=== PATIENT | male | born 1955 | race African-American/Black ===

== ENCOUNTER 2016-11-23 12:18 | Emergency (ER) | payer MEDICARE ==
[~2016-11-23 12:18] MED LIST: ANTIVERT25 MG PO; CENTRUM1 TAB; CENTRUM1 TAB PO; DURAGESIC12.5 MCG/H TD; DYAZIDE 25 MG-51 CAP PO; FLEXERIL10 MG PO; HYDROCODONE BIT1 T11 PO; LISINOPRIL/HCTZ1 TA2 PO; LOMOTIL 0.025 M1 TAB PO; MEDROL DOSEPAK4 MG PO; NORVASC5 MG PO; PARAFON FORTE500 MG PO; PERCOCET 325 MG1 TA7 PO; PREDNICOT10 MG PO; PREDNICOT20 MG PO; STERAPRED DS10 MG PO; VICODIN 5/500 505 MG PO; VITAMIN B12100 MCG PO; VITAMIN D1000 IU PO; VITAMIN D5000 I3 PO; VITAMIN D5000 IU PO; XANAX0.25 MG PO
[2016-11-23] MEDS ORDERED: MEDROL DOSEPAK4 MG PO ×2 (13:43→14:14)
[2016-11-23] MEDS ORDERED: CYCLOBENZAPRINE10 MG PO ×2 (13:43→14:14)
[2016-11-23] MEDS ORDERED: NAPROSYN500 MG PO ×2 (13:43→14:14)
== END 2016-11-23 13:51 | disposition home or self-care (01) ==
LOC: ED 12:18
DX: S39.012A Strain of muscle, fascia and tendon of lower back, initial encounter (principal); Z79.899 Other long term (current) drug therapy; W18.39XA Other fall on same level, initial encounter; Y93.89 Activity, other specified; Y92.009 Unspecified place in unspecified non-institutional (private) residence as the place of occurrence of the external cause; Y99.9 Unspecified external cause status

== ENCOUNTER → 2017-02-12 | Outpatient (CLI) | payer MEDICARE ==
[~2017-02-12] MED LIST changes: +CYCLOBENZAPRINE10 MG PO; +NAPROSYN500 MG PO
== END | disposition home or self-care (01) ==
LOC: LAB 11:17
DX: R05 Cough (principal)

== ENCOUNTER 2017-06-21 10:08 | Emergency (ER) | payer MEDICARE ==
[~2017-06-21] VITALS: Ht 175.2 cm; Wt 73.9 kg
[2017-06-21] MEDS ORDERED: KEFLEX500 M1 PO (10:29)
== END 2017-06-21 10:53 | disposition home or self-care (01) ==
LOC: ED 10:08
DX: S51.811D Laceration without foreign body of right forearm, subsequent encounter (principal); X58.XXXD Exposure to other specified factors, subsequent encounter; Y92.9 Unspecified place or not applicable; Y99.9 Unspecified external cause status; Z79.899 Other long term (current) drug therapy

== ENCOUNTER 2017-09-08 10:38 | Emergency (ER) | payer MEDICARE ==
[~2017-09-08] VITALS: Ht 175.2 cm; Wt 74.8 kg
[~2017-09-08 10:38] MED LIST changes: +KEFLEX500 M1 PO
[2017-09-08 12:24] LABS: BASO % 0.5 % (0.0-1.0); EOS # 0.1 10*3/uL (0.0-0.4); EOS % 0.9 % (1.0-4.0); HEMATOCRIT 44.2 % (42.0-52.0); HEMOGLOBIN 15.1 g/dl (14.0-18.0); LYMPH # 2.7 10*3/uL (1.3-4.4); MEAN CELL VOLUME 83.4 fl (80.0-94.0); MEAN CORPUSCULAR HGB 28.5 pg (27.0-31.0); MEAN CORPUSCULAR HGB CONC 34.2 g/dl (33.0-37.0); MEAN PLATELET VOLUME 8.2 fl (9.6-12.3); MONO # 0.8 10*3/uL (0.1-1.0); MONO % 8.5 % (3.0-9.0); NEUT # 5.2 10*3/uL (2.3-7.9); NEUT % 58.5 % (47.0-73.0); PLATELET COUNT AUTOMATED 210 10*3/uL (130-400); RED CELL DISTRI WIDTH 12.5 % (0-14.5); WHITE BLOOD COUNT 8.8 10*3/uL (4.8-10.8)
[2017-09-08 12:33] LABS: ACT PARTIAL THROMBO TIME 22.1 SECONDS (20.8-31.5)
[2017-09-08 12:38] LABS: BUN 7 mg/dl (7-24); CHLORIDE 107 mmol/L (98-107); CREATININE 1.12 mg/dL (0.70-1.30); POTASSIUM 3.2 mmol/L (3.5-5.1); SODIUM 141 mmol/L (136-145)
[2017-09-08] MEDS ORDERED: DECADRON4 MG PO (12:59)
[2017-09-08] MEDS ORDERED: DEXAMETHASONE4 MG PO (15:02)
== END 2017-09-08 21:16 | disposition left against medical advice (07) ==
LOC: ED 10:38
PROVIDERS: Emergency Medicine
DX: M48.02 Spinal stenosis, cervical region (principal); M62.81 Muscle weakness (generalized); Z90.89 Acquired absence of other organs; Z79.899 Other long term (current) drug therapy

== ENCOUNTER 2018-03-28 23:47 | Emergency (ER) | payer MEDICARE ==
[~2018-03-28] VITALS: Ht 180.3 cm; Wt 81.6 kg
[~2018-03-28 23:47] MED LIST changes: +DECADRON4 MG PO; +DEXAMETHASONE4 MG PO
[2018-03-29 00:04] LABS: BASO % 0.8 % (0.0-1.0); EOS # 0.1 10*3/uL (0.0-0.4); EOS % 2.5 % (1.0-4.0); HEMATOCRIT 42.5 % (42.0-52.0); HEMOGLOBIN 14.4 g/dl (14.0-18.0); LYMPH # 1.3 10*3/uL (1.3-4.4); MEAN CELL VOLUME 84.5 fl (80.0-94.0); MEAN CORPUSCULAR HGB 28.6 pg (27.0-31.0); MEAN CORPUSCULAR HGB CONC 33.9 g/dl (33.0-37.0); MONO # 0.5 10*3/uL (0.1-1.0); MONO % 9.2 % (3.0-9.0); NEUT # 3.3 10*3/uL (2.3-7.9); NEUT % 62.3 % (47.0-73.0); PLATELET COUNT AUTOMATED 168 10*3/uL (130-400); RED BLOOD COUNT 5.03 10*6/uL (4.50-5.90); RED CELL DISTRI WIDTH 14.8 % (0-14.5); WHITE BLOOD COUNT 5.2 10*3/uL (4.8-10.8)
[2018-03-29 00:21] LABS: ALBUMIN 3.8 gm/dl (3.1-4.5); ALKALINE PHOSPHATASE 71 U/L (45-117); BUN 8 mg/dl (7-24); CHLORIDE 107 mmol/L (98-107); CREATININE 1.02 mg/dL (0.70-1.30); POTASSIUM 2.9 mmol/L (3.5-5.1); SGOT/AST 40 IU/L (3-35); SGPT/ALT 35 U/L (12-78); SODIUM 143 mmol/L (136-145); TOTAL PROTEIN 6.3 gm/dL (6.4-8.2)
[2018-03-29 00:28] LABS: ACETAMINOPHEN (TYLENOL) < 2.0 ug/ml (10-30); TROPONIN I < 0.015 ng/ml (<0.045)
[2018-03-29 00:53] LABS: BILIRUBIN NEGATIVE (NEGATIVE); BLOOD NEGATIVE (NEGATIVE); CLARITY CLEAR (CLEAR); COLOR YELLOW (YELLOW); GLUCOSE TRACE (NEGATIVE); KETONE TRACE (NEGATIVE); LEUKO ESTERASE TRACE (NEGATIVE); NITRITE NEGATIVE (NEGATIVE); SPECIFIC GRAVITY 1.025 (1.005-1.030); UROBILINOGEN 0.2 E.U./dl (0.2-1.0)
[2018-03-29 01:03] LABS: URINE AMPHETAMINES < 1000 (1000ng/ml); URINE BARBITURATES < 200 (200ng/ml); URINE BENZODIAZEPINES < 200 (200ng/ml); URINE CANNABINOIDS (THC) > 50 (50ng/ml); URINE COCAINE > 300 (300ng/ml); URINE OPIATES > 300 (300ng/ml)
[2018-03-29 01:08] LABS: URINE METHADONE < 300 (300ng/ml); URINE PHENCYCLIDINE < 25 (25ng/ml)
[2018-03-29] MEDS ORDERED: K-TAB20 MEQ PO (01:17)
[2018-03-29] MEDS ORDERED: Orphenadrine C100 MG PO (01:17)
[2018-03-29] MEDS ORDERED: KETOROLAC10 MG PO (01:17)
== END 2018-03-29 01:21 | disposition home or self-care (01) ==
LOC: ED 23:47
PROVIDERS: Physician Assistant
DX: F14.10 Cocaine abuse, uncomplicated (principal); E87.6 Hypokalemia; Z79.899 Other long term (current) drug therapy

== ENCOUNTER 2018-09-19 12:41 | Emergency (ER) | payer MEDICARE ==
[~2018-09-19] VITALS: Ht 175.2 cm; Wt 73.5 kg
[~2018-09-19 12:41] MED LIST changes: +K-TAB20 MEQ PO; +KETOROLAC10 MG PO; +Orphenadrine C100 MG PO
[2018-09-28] MEDS ORDERED: CEPHALEXIN500 M1 PO (04:06)
[2018-09-28] MEDS ORDERED: SEPTDS PO (04:06)
== END 2018-09-19 13:39 | disposition left against medical advice (07) ==
LOC: ED 12:41
DX: R05 Cough (principal); J02.9 Acute pharyngitis, unspecified; R52 Pain, unspecified; R09.89 Other specified symptoms and signs involving the circulatory and respiratory systems; R53.81 Other malaise; Z53.21 Procedure and treatment not carried out due to patient leaving prior to being seen by health care provider; Z79.1 Long term (current) use of non-steroidal anti-inflammatories (NSAID); Z79.2 Long term (current) use of antibiotics; Z79.899 Other long term (current) drug therapy; Z98.890 Other specified postprocedural states

== ENCOUNTER 2018-09-29 13:01 | Inpatient (IN) | payer MEDICARE ==
[~2018-09-29] VITALS: Ht 177.8 cm; Wt 77.7 kg
--- NOTE | ~2018-09-29 | WRIGHTHP ---
[place], [place] PATIENT HISTORY AND PHYSICAL EXAM NAME: FLO SINGH UNIT #: [id number] ROOM: 415 DOCTOR: CONNER OLSON MD BIRTHDATE: [birth year] DOS: 09/29/2018 HISTORY OF PRESENT ILLNESS: The patient is 63 years old. The patient is very well known to us. The patient comes in with complaints of swelling and pain in the left axilla. This started just a few days prior to this admission. The patient denies having any chest pains or palpitations, does not have any fever or chills, does not have any abdominal pain, nausea, or emesis. PAST MEDICAL HISTORY: Significant for: 1. Chronic back pain. 2. Benign hypertension. MEDICATIONS: He is on are lisinopril and Norvasc, unknown doses so far. SOCIAL HISTORY: Nonsmoker, does not use any alcohol. PHYSICAL EXAMINATION: GENERAL: The patient is awake and alert and oriented, does not appear to be in any distress. VITAL SIGNS: Graphic trend shows a pressure of 132/70, pulse of 76, respirations 14, afebrile. LUNGS: Clear. HEART: Regular. ABDOMEN: Soft. EXTREMITIES: Without any edema. SKIN: Left axillary area large size of an orange area of induration and fluctuation noticed with some minimal superficial redness suggestive of an acute abscess. ASSESSMENT AND PLAN: 1. Axillary abscess, on IV antibiotics. Surgical consultation was obtained for I and D. C-reactive protein is elevated at 19.0 with a white cell count of 13,000. We will recheck it once the I and D is performed. 2. Benign hypertension. The patient will be reordered on his home medications, lisinopril and Norvasc once we know the exact doses that he is on. [place], [place] PATIENT HISTORY AND PHYSICAL EXAM NAME: FLO SINGH UNIT #: [id number] ROOM: 415 DOCTOR: CONNER OLSON MD BIRTHDATE: [birth year] CONNER OLSON MD CM:HISPHYS:PATIENT HISTORY AND PHYSICAL EXAMINATION [id number] CONNER OLSON MD 09/30/18 1116 interface
--- NOTE | ~2018-09-29 | PR ---
[place], [place] PROGRESS NOTE NAME: FLO SINGH [facility] #: [id number] UNIT #: [id number] ROOM: 415 DOCTOR: CONNER OLSON MD BIRTHDATE: [birth year] DOS: SUBJECTIVE: The patient is about the same. Does not have any new complaints, sitting up, eating his breakfast. He did undergo his I and D yesterday. OBJECTIVE: VITAL SIGNS: Pressure is 160/90, pulse of 64, respirations 16, temperature 97.8. LUNGS: Clear. HEART: Regular. ABDOMEN: Obese, soft. EXTREMITIES: Without any edema. Left axillary area with minimal bloody drainage. LABORATORY DATA: Blood cultures, no bacterial growth. Wound culture is pending, no results available yet. ASSESSMENT AND PLAN: 1. Left axillary abscess, status post incision and drainage, Surgery following. The patient is on IV antibiotics. We will wait for the cultures to be finalized. Once we have the final results, the plan is to discharge him home on p.o. antibiotics and continue wound care at home. Repeat labs to be ordered for tomorrow. 2. Benign hypertension. The patient does not know the dose of his medication. We will restart a low dose of lisinopril today. CONNER OLSON MD CM:PNTRANS [id number] CONNER OLSON MD 10/01/18 1343 interface
--- NOTE | ~2018-09-29 | DS ---
[place], [place] DISCHARGE SUMMARY [id number] UNIT #: [id number] ROOM: 415 DOCTOR: CONNER OLSON MD BIRTHDATE: [birth year] DOS: 10/02/2018 DIAGNOSES: 1. Left axillary abscess status post incision and drainage. 2. Staph methicillin-resistant Staphylococcus aureus of the wound. 3. Benign hypertension, poorly controlled. HOSPITAL COURSE: The patient is 63 years old who comes in with complaints of swelling and pain in the left axilla. He had taken cephalexin as an outpatient without any improvement. He was sent to the Emergency Room. He arrived at the ER with elevated white cell count of 13,000, C-reactive protein of 19. The patient was admitted and was placed on IV vancomycin. Dr. Vanessa was consulted. The patient was seen. I and D was performed. The wound is getting packed. Wound cultures grew MRSA which the patient is already on vancomycin. The patient is not having any complaints today. There is not much of drainage from the wound. The patient is advised to stay for another couple more days to finish off 5 days of antibiotics, but he is refusing. He also therefore is ordered visiting nurses for wound care and he will be placed on Cipro 500 mg twice a day for 10 days. Advised to follow up with Dr. Yan as an outpatient. Blood pressures have been poorly controlled. He does not know the doses of his medications. He is advised to restart them when he goes home. He was getting lisinopril, Norvasc and clonidine in the hospital. CONNER OLSON MD CM:DISCHARG [id number] CONNER OLSON MD 10/02/18 1418 interface
--- NOTE | ~2018-09-29 | PR ---
[place], [place] PROGRESS NOTE [id number] UNIT #: [id number] ROOM: 415 DOCTOR: CONNER OLSON MD BIRTHDATE: [birth year] DOS: SUBJECTIVE: The patient is doing fine without any complaint. Denies any chest pains, palpitations. No fevers. Pressure is still slightly on the high side even after the clonidine was started. OBJECTIVE: VITAL SIGNS: Blood pressure is 156/93 this morning, pulse of 70, respirations 20, temperature 97.8. LUNGS: Clear. HEART: Regular. ABDOMEN: Obese, soft. EXTREMITIES: Without any edema. LABORATORY DATA: White cell count is normal at 6.1, hemoglobin 15.5, platelets 229. BMP: Glucose 83, BUN 4, creatinine 0.65. Electrolytes: Sodium 141, potassium 3.7, chloride 105, bicarbonate 27. MRSA of the wound is noted. ASSESSMENT AND PLAN: 1. Left axillary abscess with methicillin-resistant Staphylococcus aureus of the wound on IV vancomycin. He has received 3 days of vancomycin so far. He is refusing to stay any longer, so the plan is to discharge him to home today with visiting nurses and p.o. antibiotics. Blood cultures have all come back negative. 2. Benign hypertension. Restart his home medication. The patient is not entirely sure what the dose of medicine he is on. He is advised to follow with Dr. Yan. CONNER OLSON MD CM:PNTRANS [id number] CONNER OLSON MD 10/03/18 0548 interface
[~2018-09-29 13:01] MED LIST changes: +CEPHALEXIN500 M1 PO; +SEPTDS PO
[2018-09-29 13:03] VITALS: BP 164/91
[2018-09-29] MEDS ORDERED: KEFLEX500 M1 PO (13:10)
[2018-09-29 13:55] LABS: BASO % 0.2 % (0.0-1.0); EOS # 0.1 10*3/uL (0.0-0.4); EOS % 0.7 % (1.0-4.0); HEMATOCRIT 46.3 % (42.0-52.0); HEMOGLOBIN 15.5 g/dl (14.0-18.0); LYMPH # 1.2 10*3/uL (1.3-4.4); LYMPH % 9.2 % (27.0-41.0); MEAN CELL VOLUME 83.4 fl (80.0-94.0); MEAN CORPUSCULAR HGB 27.9 pg (27.0-31.0); MEAN CORPUSCULAR HGB CONC 33.5 g/dl (33.0-37.0); MEAN PLATELET VOLUME 9.1 fl (9.6-12.3); MONO # 0.9 10*3/uL (0.1-1.0); MONO % 6.9 % (3.0-9.0); NEUT % 81.7 % (47.0-73.0); PLATELET COUNT AUTOMATED 188 10*3/uL (130-400); RED BLOOD COUNT 5.55 10*6/uL (4.50-5.90); RED CELL DISTRI WIDTH 12.7 % (0-14.5); WHITE BLOOD COUNT 13.4 10*3/uL (4.8-10.8)
[2018-09-29 14:04] VITALS: BP 110/86
[2018-09-29 14:05] LABS: ALBUMIN 3.8 gm/dl (3.1-4.5); ALKALINE PHOSPHATASE 64 U/L (45-117); BUN 8 mg/dl (7-24); CHLORIDE 104 mmol/L (98-107); CREATININE 0.78 mg/dL (0.70-1.30); LIPASE 371 U/L (73-393); POTASSIUM 3.7 mmol/L (3.5-5.1); SGOT/AST 25 IU/L (3-35); SGPT/ALT 29 U/L (12-78); SODIUM 140 mmol/L (136-145); TOTAL PROTEIN 7.5 gm/dL (6.4-8.2)
[2018-09-29 14:07] LABS: ACT PARTIAL THROMBO TIME 26.3 SECONDS (20.8-31.5)
[2018-09-29] MEDS ORDERED: SEPTDS PO (15:59)
[2018-09-29 16:00] VITALS: BP 159/88
[2018-09-29] MEDS ORDERED: LISINOPRIL PO (16:16)
[2018-09-29] MEDS ORDERED: NORVASC PO (16:16)
[2018-09-29 20:00] VITALS: BP 151/76
[2018-09-30] VITALS (9 sets, daily range): BP systolic 96–156; BP diastolic 49–86
[2018-10-01] VITALS: BP 151/94; BP 154/84
[2018-10-01 07:20] LABS: BUN 7 mg/dl (7-24); CREATININE 0.65 mg/dL (0.70-1.30)
[2018-10-01 08:00] VITALS: BP 160/90
[2018-10-01 16:00] VITALS: BP 166/92
[2018-10-01 18:42] VITALS: BP 142/82
[2018-10-01 22:00] VITALS: BP 110/87
[2018-10-02] VITALS: BP 156/88
[2018-10-02 01:00] VITALS: BP 142/88
[2018-10-02 06:01] LABS: BASO # 0.1 10*3/uL (0.0-0.1); BASO % 0.8 % (0.0-1.0); EOS # 0.2 10*3/uL (0.0-0.4); EOS % 3.4 % (1.0-4.0); HEMATOCRIT 47.9 % (42.0-52.0); HEMOGLOBIN 15.5 g/dl (14.0-18.0); LYMPH # 2.1 10*3/uL (1.3-4.4); LYMPH % 34.1 % (27.0-41.0); MEAN CELL VOLUME 83.7 fl (80.0-94.0); MEAN CORPUSCULAR HGB 27.1 pg (27.0-31.0); MEAN CORPUSCULAR HGB CONC 32.4 g/dl (33.0-37.0); MEAN PLATELET VOLUME 9.1 fl (9.6-12.3); MONO # 0.5 10*3/uL (0.1-1.0); MONO % 8.2 % (3.0-9.0); NEUT # 3.2 10*3/uL (2.3-7.9); PLATELET COUNT AUTOMATED 229 10*3/uL (130-400); RED BLOOD COUNT 5.72 10*6/uL (4.50-5.90); RED CELL DISTRI WIDTH 12.8 % (0-14.5); WHITE BLOOD COUNT 6.1 10*3/uL (4.8-10.8)
[2018-10-02 06:06] LABS: BUN 4 mg/dl (7-24); CHLORIDE 105 mmol/L (98-107); CREATININE 0.65 mg/dL (0.70-1.30); POTASSIUM 3.7 mmol/L (3.5-5.1); SODIUM 141 mmol/L (136-145)
[2018-10-02 08:00] VITALS: BP 156/93
[2018-10-02] MEDS ORDERED: CIPRO500 MG PO (08:56)
== END 2018-10-02 12:26 | disposition home or self-care (01) | DRG 603 ==
LOC: ED 13:01 → 4E 14:40 → EDHOLD 14:40 → 4E 14:57
PROVIDERS: Emergency Medicine; Internal Medicine
PROC: 0X950ZZ Drainage of Left Axilla, Open Approach (ICD-10-PCS; principal; 2018-09-30)
DX: L02.412 Cutaneous abscess of left axilla (principal); I10 Essential (primary) hypertension; F14.10 Cocaine abuse, uncomplicated; B95.62 Methicillin resistant Staphylococcus aureus infection as the cause of diseases classified elsewhere; Z90.79 Acquired absence of other genital organ(s)

== ENCOUNTER → 2018-10-08 | Outpatient (CLI) | payer MEDICARE ==
[~2018-10-08] MED LIST changes: +CIPRO500 MG PO; +LISINOPRIL PO; +NORVASC PO
== END | disposition home or self-care (01) ==
LOC: WOUNDCARE 08:39
DX: L02.412 Cutaneous abscess of left axilla (principal); I10 Essential (primary) hypertension

== ENCOUNTER 2019-07-09 01:33 | Emergency (ER) | payer MEDICARE ==
[~2019-07-09] VITALS: Wt 71.7 kg
[~2019-07-09 01:33] MED LIST changes: +CLINDAMYCIN150 MG PO
[2019-07-09] MEDS ORDERED: MEDROL DOSEPAK4 MG PO (01:53)
[2019-07-09] MEDS ORDERED: ROBAXIN-750750 MG PO (01:53)
== END 2019-07-09 02:16 | disposition home or self-care (01) ==
LOC: ED 01:33
DX: M54.5 Low back pain (principal); G89.29 Other chronic pain

== ENCOUNTER 2019-07-30 16:10 | Emergency (ER) | payer MEDICARE ==
[~2019-07-30] VITALS: Wt 81.6 kg
[~2019-07-30 16:10] MED LIST changes: +ROBAXIN-750750 MG PO
== END 2019-07-30 19:06 | disposition expired ==
LOC: ED 16:24
DX: I46.9 Cardiac arrest, cause unspecified (principal); T40.601A Poisoning by unspecified narcotics, accidental (unintentional), initial encounter; I10 Essential (primary) hypertension; M13.851 Other specified arthritis, right hip; Y92.89 Other specified places as the place of occurrence of the external cause